=== PATIENT | female | born 1985 | race African-American/Black ===

== ENCOUNTER 2019-05-04 14:32 | Emergency (ER) | payer OTHER ==
[~2019-05-04] VITALS: Ht 160 cm; Wt 53.1 kg
[~2019-05-04 14:32] MED LIST: CEPH-1019 PO; NORCO; SULF-59 PO
[2019-05-04 14:41] VITALS: BP 117/70
--- NOTE | 2019-05-04 16:18 | NUR ---
PT TO ER BED 1
--- NOTE | 2019-05-04 16:38 | NUR ---
33F C/O N/V THIS AM BUT NOT NOW, PRODUCTIVE COUGH AND SORETHROAT SINCE THIS AM. NO BLOOD IN VOMITUS, PT STATES SHE VOMITED "A LOT". STATES BRIEF CHILLS, THICK WHITE SPUTUM, NASAL CONGESTION. DENIES DIARRHEA, RHINORRHEA, SNEEZING, SOB, ILL CONTACTS. RECENT TRAVEL TO [place], CAME BACK ON 04/29/19. STATES BURNING 10/10 UPPER PALATE PAIN, WORSENED BY EATING/DRINKING. RHONCHI IN B/L LUNGS, R>L. ERMD TO EVAL PT
[2019-05-04] MEDS ORDERED: ACETAMINOPHEN 325 MG TAB PO ONE (16:45)
[2019-05-04] MEDS ORDERED: LIDOCAINE VISCOUS 2% 20 ML UDC PO ONE (16:45)
--- NOTE | 2019-05-04 17:35 | NUR ---
Patient discharged with v/s stable. Written and verbal after care instructions given and explained. Patient alert, oriented and verbalized understanding of instructions. Ambulatory with steady gait. All questions addressed prior to discharge. ID band removed. Patient advised to follow up with PMD. Rx of IBU,CHLORASEPTIC,TYLENOL given. Patient educated on indication of medication including possible reaction and side effects. Opportunity to ask questions provided and answered.
[2019-05-04 17:36] VITALS: BP 111/81
== END 2019-05-04 17:35 | disposition home or self-care (01) ==
LOC: MED 14:32
DX: J02.9 Acute pharyngitis, unspecified (principal); K13.79 Other lesions of oral mucosa; Z79.899 Other long term (current) drug therapy
CPT/HCPCS: 99283

== ENCOUNTER 2019-05-27 16:42 | Emergency (ER) | payer OTHER ==
[~2019-05-27] VITALS: Ht 160 cm; Wt 53.1 kg
[2019-05-27 16:46] VITALS: BP 116/68
--- NOTE | 2019-05-27 16:54 | NUR ---
WAIT AT LOBBY
--- NOTE | 2019-05-27 17:10 | NUR ---
PT AMB TO BED 3
--- NOTE | 2019-05-27 17:10 | NUR ---
BIB SELF. AAO X4 C/O CHRONIC GENERALIZED ABDOMINAL PAIN S/P VAGINAL NORMAL DELIVERY X 5 YEARS WORSENED TODAY. DENIES N/V/D, FEVER, SOB. LAST BM 5 DAYS AGO. ABDOMEN, SOFT, NON TENDER TO TOUCH. PT STATES THAT SHE WAS SEEN BY PCP LAST YEAR AND WAS REFERRED TO [facility] AND PT STATES THAT SHE HAD GI INFECTION. ER TO EVALUATE PT.
--- NOTE | 2019-05-27 17:50 | NUR ---
[facility] ROA AT BEDSIDE FOR PT EVALUATION
[2019-05-27] MEDS ORDERED: DICYCLOMINE HCL LIQUID 10 MG/5 ML UDC PO ONE (18:00)
[2019-05-27] MEDS ORDERED: LIDOCAINE VISCOUS 2% 20 ML UDC PO ONE (18:00)
--- NOTE | 2019-05-27 18:44 | NUR ---
PT SITTING UP. AAO X4, FULL CLEAR SPEECH. PT DENIES ANY ABDOMINAL PAIN. SAFETY ENSURED. WILL CONTINUE TO MONITOR.
[2019-05-27 19:22] VITALS: BP 118/72
--- NOTE | 2019-05-27 19:22 | NUR ---
Patient discharged with v/s stable. Written and verbal after care instructions given and explained. Patient alert, oriented and verbalized understanding of instructions. Ambulatory with steady gait. All questions addressed prior to discharge. ID band removed. Patient advised to follow up with PMD. Rx of BENTYL, MIRALAX, LACTULOSE given. Patient educated on indication of medication including possible reaction and side effects. Opportunity to ask questions provided and answered.
== END 2019-05-27 19:07 | disposition home or self-care (01) ==
LOC: MED 16:42
DX: G89.29 Other chronic pain (principal); R10.13 Epigastric pain; Z79.899 Other long term (current) drug therapy
CPT/HCPCS: 81002; 81025; 99283

== ENCOUNTER 2019-12-12 08:54 | Emergency (ER) | payer OTHER ==
[~2019-12-12] VITALS: Ht 163.8 cm; Wt 54.4 kg
[2019-12-12 08:57] VITALS: BP 119/70
--- NOTE | 2019-12-12 09:02 | NUR ---
PT AMB TO BED 07
--- NOTE | 2019-12-12 09:05 | NUR ---
PT STARTED WITH ITCHING THEN PAIN ON EYES BILATERAL. ALSO C/O BOTH EYES WATERY. DENIES VISION CHANGES. PATIENT STATES PAIN OF 10/10 AT THIS TIME; VSS; PATIENT POSITIONED FOR COMFORT; HOB ELEVATED; BEDRAILS UP X1; BED DOWN. ER MD MADE AWARE OF PT STATUS.
[2019-12-12 09:49] VITALS: BP 111/65
--- NOTE | 2019-12-12 09:49 | NUR ---
Patient discharged with v/s stable. Written and verbal after care instructions given and explained. Patient alert, oriented and verbalized understanding of instructions. Ambulatory with steady gait. All questions addressed prior to discharge. ID band removed. Patient advised to follow up with PMD. Rx of Polytrim given. Patient educated on indication of medication including possible reaction and side effects. Opportunity to ask questions provided and answered.
== END 2019-12-12 09:45 | disposition home or self-care (01) ==
LOC: MED 08:54
DX: H10.9 Unspecified conjunctivitis (principal); Z79.899 Other long term (current) drug therapy
CPT/HCPCS: 99283

== ENCOUNTER 2020-05-31 03:50 | Emergency (ER) | payer OTHER ==
[~2020-05-31] VITALS: Ht 160 cm; Wt 54.0 kg
[2020-05-31 03:54] VITALS: BP 121/79
--- NOTE | 2020-05-31 04:39 | NUR ---
pt c/o burning and itching to her vulva x 4 days. denies any discharge or odor. no pain with urination. lmp 05/07/20. pt states she tried Monistat cream and when it came out there was streaks of blood. nka no hx
[2020-05-31 04:46] LABS: APPEARANCE,URINE SL CLOUDY (CLEAR); BILIRUBIN,URINE NEGATIVE (NEGATIVE); BLOOD, URINE 1+ (NEGATIVE); COLOR,URINE YELLOW (YELLOW); LEUKOCYTE ESTERASE ,URINE 1+ (NEGATIVE); NITRITE, URINE NEGATIVE (NEGATIVE); UGLUCOSE NEGATIVE (NEGATIVE)
[2020-05-31] MEDS ORDERED: cefTRIAXone 1,000 MG in LIDOCAINE MPF 1% 2.1 ML IM ONE (05:15)
[2020-05-31] MEDS ORDERED: cefTRIAXone 1,000 MG VIAL ONE (05:18)
[2020-05-31] MEDS ORDERED: LIDOCAINE MPF 1% 5 ML ONE (05:18)
[2020-05-31 05:31] VITALS: BP 121/79
[2020-06-03 06:11] LABS: CHLAMYDIA TRACHOMATIS AMP DNA Negative (Negative)
== END 2020-05-31 05:25 | disposition home or self-care (01) ==
LOC: MED 03:50
DX: N39.0 Urinary tract infection, site not specified (principal); N89.8 Other specified noninflammatory disorders of vagina; Z79.899 Other long term (current) drug therapy
CPT/HCPCS: 36415; 81001; 87086; 96372; 99283; J0696; J2001

== ENCOUNTER 2020-09-05 14:47 | Emergency (ER) | payer OTHER ==
[~2020-09-05] VITALS: Ht 160 cm; Wt 54.4 kg
[2020-09-05 14:56] VITALS: BP 123/77
[2020-09-05 15:00] VITALS: BP 123/77
--- NOTE | 2020-09-05 15:00 | NUR ---
35 Y/O FEMALE C/O BUMP ON UPPER LIP, PATIENT NOTICED YESTERDAY, BELIEVES SHE WAS BIT BY A BUG. PAIN IS 7/10. DENIES ANY DISCHARGE. SKIN INTACT NO PMH NKDA
--- NOTE | 2020-09-05 15:12 | NUR ---
Patient discharged with v/s stable. Written and verbal after care instructions given and explained. Patient alert, oriented and verbalized understanding of instructions. Ambulatory with steady gait. All questions addressed prior to discharge. ID band removed. Patient advised to follow up with PMD. Rx of BACTRIM, NAPROSYN given. Patient educated on indication of medication including possible reaction and side effects. Opportunity to ask questions provided and answered.
== END 2020-09-05 15:12 | disposition home or self-care (01) ==
LOC: MED 14:47
DX: K13.0 Diseases of lips (principal); Z79.899 Other long term (current) drug therapy; W57.XXXA Bitten or stung by nonvenomous insect and other nonvenomous arthropods, initial encounter; Y93.89 Activity, other specified; Y92.89 Other specified places as the place of occurrence of the external cause; Y99.8 Other external cause status
CPT/HCPCS: 99283

== ENCOUNTER 2020-09-08 14:28 | Emergency (ER) | payer OTHER ==
[~2020-09-08] VITALS: Ht 160 cm; Wt 54.4 kg
[2020-09-08 14:39] VITALS: BP 120/65
--- NOTE | 2020-09-08 14:42 | NUR ---
PT SENT TO LOBBY TO WAIT FOR AVAILABLE BED.
--- NOTE | 2020-09-08 15:10 | NUR ---
Pt placed in [facility] for further evaluation
--- NOTE | 2020-09-08 15:11 | NUR ---
Tate Antoine at chairside examining patient
--- NOTE | 2020-09-08 15:15 | NUR ---
c/o rash starting yesterday, pt states she was seen here Saturday and placed on abx. Pt states she started to get a rash and severe itchiness yesterday and believes its related to the new medications.
[2020-09-08 15:31] VITALS: BP 120/65
--- NOTE | 2020-09-08 15:32 | NUR ---
Patient discharged with v/s stable. Written and verbal after care instructions given and explained. Patient alert, oriented and verbalized understanding of instructions. Ambulatory with steady gait. All questions addressed prior to discharge. ID band removed. Patient advised to follow up with PMD. Rx of Atarax 25mg and Keflex 500mg given. Patient educated on indication of medication including possible reaction and side effects. Opportunity to ask questions provided and answered.
== END 2020-09-08 15:32 | disposition home or self-care (01) ==
LOC: MED 14:28
DX: K12.2 Cellulitis and abscess of mouth (principal); Z79.899 Other long term (current) drug therapy
CPT/HCPCS: 99283; Q0163

== ENCOUNTER 2021-02-14 08:24 | Emergency (ER) | payer OTHER ==
[~2021-02-14] VITALS: Ht 160 cm; Wt 58.5 kg
[2021-02-14 08:25] VITALS: BP 109/59
--- NOTE | 2021-02-14 08:35 | NUR ---
PATIENT AMBULATED TO BED 12.
--- NOTE | 2021-02-14 08:47 | NUR ---
35/F PRESENTS TO ED WITH C/O VAGINAL BLEEDING SINCE THIS MORNING. PATIENT STATES AFTER GOING TO THE RESTROOM THIS MORNING SHE NOTICED BLOOD AFTER WIPING AND BLOOD IN THE TOILET. PATIENT STATES SHE ALSO FEELS 8/10 CRAMPING IN HER LOWER ABDOMEN. PATIENT STATES SHE IS CURRENTLY 7 WEEKS , PATIENT IS A0. PATIENT DENIES NAUSEA/VOMITING/DIARRHEA, DENIES DYSURIA, HEMATURIA BUT STATES HER "VAGINA FEELS WEIRD."
--- NOTE | 2021-02-14 09:04 | NUR ---
Matthew lin in [facility] - 02/14/21 at 0942 by DELANEY disconnected iv fluids. pt ambulated to the bathroom
[2021-02-14 09:20] LABS: BASOPHILS % (AUTO) 0.7 % (0.0-2.0); EOSINOPHILS % (AUTO) 1.6 % (0.0-4.0); HEMATOCRIT 38.6 % (36-48); HEMOGLOBIN 12.8 g/dL (12.0-16.0); LYMPHOCYTES # (AUTO) 0.9 K/uL (2.5-16.5); LYMPHOCYTES % (AUTO) 28.5 % (20.5-51.1); MEAN CORPUSCULAR HEMOGLOBIN 28 pg (27-31); MEAN CORPUSCULAR HGB CONC 33 g/dL (33-37); MEAN CORPUSCULAR VOLUME 84.2 fL (80-94); MONOCYTES # (AUTO) 0.3 K/uL (0.8-1.0); MONOCYTES % (AUTO) 8.6 % (1.7-9.3); NEUTROPHILS # (AUTO) 1.8 K/uL (1.8-7.7); NEUTROPHILS % (AUTO) 60.6 % (42.2-75.2); PLATELET COUNT (AUTO) 199 K/uL (140-450); RED BLOOD CELL COUNT(AUTO) 4.59 MIL/uL (4.20-5.40); RED CELL DISTRIBUTION WIDTH 13.7 % (11.6-13.7)
[2021-02-14 09:36] LABS: ALBUMIN 3.6 g/dL (3.4-5.0); ANION GAP 10.4 (8-16); CARBON DIOXIDE 26.7 mmol/L (21-32); CREATININE 0.7 mg/dL (0.6-1.3); POTASSIUM 4.1 mmol/L (3.5-5.1); TOTAL BILIRUBIN 0.4 mg/dL (0.0-1.0)
--- NOTE | 2021-02-14 09:42 | NUR ---
Ultrasound at bedside
[2021-02-14 10:56] LABS: BILIRUBIN,URINE 1+ (NEGATIVE); BLOOD, URINE NEGATIVE (NEGATIVE); COLOR,URINE YELLOW (YELLOW); LEUKOCYTE ESTERASE ,URINE TRACE (NEGATIVE); NITRITE, URINE NEGATIVE (NEGATIVE); PH,URINE 6.5 (5.0-9.0); UGLUCOSE NEGATIVE (NEGATIVE)
[2021-02-14 11:13] LABS: APPEARANCE,URINE SLIGHTLY HAZY (CLEAR)
[2021-02-14 11:16] LABS: RBC,URINE NONE SEEN /HPF (0-5)
--- NOTE | 2021-02-14 11:24 | NUR ---
Patient resting in bed, awaiting ultrasound results
[2021-02-14] MEDS ORDERED: NITR100C7 PO (11:41)
[2021-02-14 11:51] VITALS: BP 114/49
== END 2021-02-14 11:50 | disposition home or self-care (01) ==
LOC: MED 08:24
DX: O20.0 Threatened abortion (principal); O23.41 Unspecified infection of urinary tract in pregnancy, first trimester; Z3A.01 Less than 8 weeks gestation of pregnancy; Z79.899 Other long term (current) drug therapy
CPT/HCPCS: 36415; 76817; 80053; 81001; 81025; 84702; 85025; 86900; 86901; 87086; 99284

== ENCOUNTER 2022-03-02 20:02 | Emergency (ER) | payer OTHER ==
[~2022-03-02] VITALS: Ht 160 cm; Wt 65.8 kg
[~2022-03-02 20:02] MED LIST changes: +NITR100C7 PO
--- NOTE | 2022-03-02 20:50 | NUR ---
CALLED TO TRIAGE , NO ANSWER
[2022-03-02 22:14] VITALS: BP 133/70
[2022-03-02] MEDS ORDERED: KETOROLAC 60 MG/2 ML VIAL IM ONE (22:30)
--- NOTE | 2022-03-02 22:36 | NUR ---
PT AMBULATORY TO BATHROOM W STEADY GAIT.
--- NOTE | 2022-03-02 22:39 | NUR ---
PT TO XRAY VIA WHEELCHAIR.
[2022-03-02] MEDS ORDERED: NAPR-54 PO (23:06)
[2022-03-02 23:36] VITALS: BP 133/70
== END 2022-03-02 23:10 | disposition home or self-care (01) ==
LOC: MED 20:02
DX: S39.012A Strain of muscle, fascia and tendon of lower back, initial encounter (principal); S16.1XXA Strain of muscle, fascia and tendon at neck level, initial encounter; F17.210 Nicotine dependence, cigarettes, uncomplicated; F12.90 Cannabis use, unspecified, uncomplicated; Z71.6 Tobacco abuse counseling; Z79.1 Long term (current) use of non-steroidal anti-inflammatories (NSAID); Z79.2 Long term (current) use of antibiotics; V89.2XXA Person injured in unspecified motor-vehicle accident, traffic, initial encounter; Y93.89 Activity, other specified; Y92.410 Unspecified street and highway as the place of occurrence of the external cause; Y99.8 Other external cause status
CPT/HCPCS: 72050; 72100; 81025; 96372; 99284; J1885

== ENCOUNTER 2023-05-09 02:00 | Emergency (ER) | payer OTHER ==
[~2023-05-09] VITALS: Ht 160 cm; Wt 61.2 kg
[~2023-05-09 02:00] MED LIST changes: +NAPR-54 PO
--- NOTE | 2023-05-09 02:03 | NUR ---
CALLED TO TRIAGE, NO ANSWER
[2023-05-09 02:16] VITALS: BP 134/90; PULSE 84; RESP 16; TEMP 96.9; O2SAT 99
--- NOTE | 2023-05-09 02:21 | NUR ---
TO BED 12 FROM TRIAGE
--- NOTE | 2023-05-09 02:38 | NUR ---
DR NÚÑEZ EXAMINING THE PT AT THE BEDSIDE
[2023-05-09] MEDS ORDERED: diphenhydrAMINE 50 MG/ML VIAL IM ONE (02:40)
[2023-05-09] MEDS ORDERED: BEN50 PO (03:29)
[2023-05-09] MEDS ORDERED: BENC TP (03:29)
--- NOTE | 2023-05-09 03:34 | NUR ---
DR NÚÑEZ DISCHARGING THE PATIENT
[2023-05-09 03:35] VITALS: BP 134/90; PULSE 84; RESP 16; TEMP 96.9; O2SAT 99
--- NOTE | 2023-05-09 03:43 | NUR ---
Patient discharged with v/s stable. Written and verbal after care instructions given and explained. Patient alert, oriented and verbalized understanding of instructions. Ambulatory with steady gait. All questions addressed prior to discharge. ID band removed. Patient advised to follow up with PMD. Rx of BENADRYL AND BENDYL ITCH STOOPING CRM given. Patient educated on indication of medication including possible reaction and side effects. Opportunity to ask questions provided and answered.
== END 2023-05-09 03:35 | disposition home or self-care (01) ==
LOC: MED 02:00
DX: L50.9 Urticaria, unspecified (principal); Z79.899 Other long term (current) drug therapy
CPT/HCPCS: 96372; 99283; J1200

== ENCOUNTER 2023-10-08 06:54 | Emergency (ER) | payer OTHER ==
[~2023-10-08] VITALS: Ht 160 cm; Wt 59.0 kg
[~2023-10-08 06:54] MED LIST changes: +BEN50 PO; +BENC TP
[2023-10-08 07:00] VITALS: BP 111/68; PULSE 67; RESP 17; TEMP 97.7; O2SAT 97
[2023-10-08] MEDS ORDERED: FAMOTIDINE 20 MG TAB PO ONE (07:45)
[2023-10-08] MEDS ORDERED: ALUMINUM HYD/MAG/SIMETHICONE 30 ML UDC PO ONE (07:45)
[2023-10-08 08:37] LABS: HEMATOCRIT 35.9 % (36-48); HEMOGLOBIN 11.5 g/dL (12.0-16.0); MEAN CORPUSCULAR HEMOGLOBIN 25 pg (27-31); MEAN CORPUSCULAR HGB CONC 32 g/dL (33-37); MEAN CORPUSCULAR VOLUME 78.6 fL (80-94); PLATELET COUNT (AUTO) 291 K/uL (140-450); RED BLOOD CELL COUNT(AUTO) 4.57 MIL/uL (4.20-5.40); RED CELL DISTRIBUTION WIDTH 17.2 % (11.6-13.7)
[2023-10-08 08:46] LABS: APPEARANCE,URINE CLEAR (CLEAR); BILIRUBIN,URINE NEGATIVE (NEGATIVE); BLOOD, URINE NEGATIVE (NEGATIVE); COLOR,URINE YELLOW (YELLOW); LEUKOCYTE ESTERASE ,URINE NEGATIVE (NEGATIVE); NITRITE, URINE NEGATIVE (NEGATIVE); PROTEIN,URINE NEGATIVE (NEGATIVE); UGLUCOSE NEGATIVE (NEGATIVE); UROBILINOGEN,URINE 0.2 EU/dL (0.2 - 1)
[2023-10-08 08:53] LABS: EOSINOPHILS % (MANUAL) 13 % (0-4); LYMPHOCYTES % (MANUAL) 38 % (20-46); MONOCYTES % (MANUAL) 7 % (5-12)
[2023-10-08 08:58] LABS: ANION GAP 9.9 (8-16); CALCIUM 8.8 mg/dL (8.5-10.1); CARBON DIOXIDE 28.2 mmol/L (21-32); CREATININE 0.8 mg/dL (0.6-1.3); POTASSIUM 4.1 mmol/L (3.5-5.1)
[2023-10-08 09:00] LABS: ALBUMIN 3.3 g/dL (3.4-5.0); BILIRUBIN,DIRECT 0.1 mg/dL (0.0-0.3); TOTAL BILIRUBIN 0.4 mg/dL (0.0-1.0); TOTAL PROTEIN, SERUM 8.1 g/dL (6.4-8.2)
[2023-10-08] MEDS ORDERED: MAG355OR2 PO (09:34)
[2023-10-08] MEDS ORDERED: OMEP-303 PO (09:34)
[2023-10-08 09:58] VITALS: BP 111/68; PULSE 67; RESP 17; TEMP 97.7; O2SAT 97
== END 2023-10-08 10:00 | disposition home or self-care (01) ==
LOC: MED 06:54
DX: K21.9 Gastro-esophageal reflux disease without esophagitis (principal); D72.819 Decreased white blood cell count, unspecified; D50.9 Iron deficiency anemia, unspecified; Z79.899 Other long term (current) drug therapy; Z79.1 Long term (current) use of non-steroidal anti-inflammatories (NSAID); Z79.2 Long term (current) use of antibiotics
CPT/HCPCS: 36415; 80048; 80076; 81003; 81025; 83690; 85025; 99283

== ENCOUNTER 2024-03-20 14:24 | Emergency (ER) | payer OTHER ==
[~2024-03-20] VITALS: Ht 160 cm; Wt 56.7 kg
[~2024-03-20 14:24] MED LIST changes: +MAG355OR2 PO; +NAPR-337 PO; -NAPR-54 PO; +OMEP-303 PO
[2024-03-20 14:27] VITALS: BP 109/70; PULSE 76; RESP 18; TEMP 98.1; O2SAT 99
[2024-03-20 16:00] VITALS: BP 112/62; PULSE 66; RESP 16; TEMP 98.1; O2SAT 99
== END 2024-03-20 16:00 | disposition home or self-care (01) ==
LOC: MED 14:24
DX: S60.455A Superficial foreign body of left ring finger, initial encounter (principal); Z79.1 Long term (current) use of non-steroidal anti-inflammatories (NSAID); Z79.2 Long term (current) use of antibiotics; Z79.899 Other long term (current) drug therapy; W19.XXXA Unspecified fall, initial encounter; Y93.89 Activity, other specified; Y92.89 Other specified places as the place of occurrence of the external cause; Y99.8 Other external cause status
CPT/HCPCS: 73140; 99283; Q0092

== ENCOUNTER 2024-03-26 06:17 | Emergency (ER) | payer OTHER ==
[~2024-03-26] VITALS: Ht 160 cm; Wt 56.2 kg
[2024-03-26 06:25] VITALS: BP 112/66; PULSE 76; RESP 16; TEMP 97.7; O2SAT 99
[2024-03-26 06:36] VITALS: O2SAT 99
[2024-03-26] MEDS ORDERED: ACET-8905 PO (06:39)
[2024-03-26] MEDS ORDERED: IBUP-2213 PO (06:39)
[2024-03-26] MEDS: KETOROLAC 60 MG/2 ML VIAL IM ONE (07:24)
== END 2024-03-26 07:46 | disposition home or self-care (01) ==
LOC: MED 06:17
DX: R10.2 Pelvic and perineal pain (principal); Z79.899 Other long term (current) drug therapy
CPT/HCPCS: 81002; 81025; 96374; 99283; J1885